=== PATIENT | male | born 1955 | race Caucasian/White ===

== ENCOUNTER → 2018-03-09 | Outpatient (CLI) | payer OTHER ==
--- NOTE | 2018-03-10 22:53 | SP ---
DATE OF PROCEDURE: 03/09/2018 INDICATION: This is an outpatient study requested by Dr. Calle for a 63-year-old gentleman with a 25-year history of seizures; the last episode about 6 days ago. The patient fell hitting the cement so his face was black and blue around the eyes according to technologist's note. The patient is on D ilantin and Prozac. DESCRIPTION OF PROCEDURE: Routine EEG was recorded digitally. Hkxne-bd-qmptf and gpamt-pa-dxp sebastien ges were recorded and reviewed. All impedances were measured and recorded. Cap electrodes were plac ed in accordance to International 10-20 system of electrode placement. FINDINGS: Symmetrically distributed background activity of low to medium amplitude ranging in freque ncy between 8 to 10 cycles per second was seen throughout the recording. This activity attenuates wi th eye opening. Photic stimulation produces normal driving. Hyperventilation elicits no epileptifor m activity. No epileptiform transients were seen. No signs of ongoing electrographic seizures or lateralized slo wing observed. IMPRESSION: Normal study. Please correlate clinically. Dictated By: SANIYA MILIAN/MELLO Conf#: [id number] DID#: [id number] CC: SANIYA WAGNER MD; SALIMA CALLE MD;*EndCC*
== END | disposition home or self-care (01) ==
LOC: EEG 11:12
PROVIDERS: ATTEND Psychiatry & Neurology Neurology
DX: R56.9 Unspecified convulsions (principal)
CPT/HCPCS: 95819